=== PATIENT | female | born 1950 | race Caucasian/White ===

== ENCOUNTER 2019-01-17 13:56 | Inpatient (IN) | payer OTHER, MEDICARE ==
[~2019-01-17] VITALS: Ht 157.5 cm; Wt 117.9 kg
[~2019-01-17 13:56] MED LIST: ALBU0.0912 IH; IPRA14.7 INH
[2019-01-17 13:59] VITALS: BP 129/81
--- NOTE | 2019-01-17 13:59 | NUR ---
PATIENT BIBA TO BED 7 AT THIS TIME.
--- NOTE | 2019-01-17 14:10 | NUR ---
PT BIBA FROM HOME WITH C/O LEFT ANKLE PAIN AND SWELLING X 4DAYS WITH SOB. PT ON HOME O2 AT 2L NC NORMALLY. PT DENIES INJURY TO L ANKLE AND STATES THAT SHE IS IN NO PAIN AT THIS TIME. 2+ EDEMA NOTED ON TOP OF L FOOT, PULSES PRESENT BILATERALLY. PT DENIES N/V/D AT THIS TIME. PT STATES THAT SHE HAS A COUGH WITH PHLEGM, WHEEZES NOTED. PT IS ON 2L NC. PT POSITIONED FOR COMFORT, HOB ELEVATED. BED RAIL UP X 2 FOR PT SAFETY. ER MD AWARE OF PT STATUS. ALLERGY: PENICILLIN, CODEINE HX: COPD, ASTHMA RX: ALBUTEROL, ATIVAN
[2019-01-17] MEDS ORDERED: IPRATROPIUM 0.02% 0.5 MG/2.5 ML NEBU INH ONE (14:30)
[2019-01-17] MEDS ORDERED: predniSONE 20 MG TAB PO ONE (14:30)
[2019-01-17] MEDS ORDERED: ALBUTEROL 0.083% 2.5 MG/3 ML NEBU INH ONE (14:30)
--- NOTE | 2019-01-17 14:37 | NUR ---
RADIOLOGY AT BEDSIDE.
--- NOTE | 2019-01-17 14:39 | NUR ---
RESPIRATORY AT BEDSIDE.
--- NOTE | 2019-01-17 15:11 | NUR ---
LAB AT BEDSIDE.
--- NOTE | 2019-01-17 15:15 | NUR ---
ULTRASOUND AT BEDSIDE
[2019-01-17 15:43] LABS: PROTHROMBIN TIME 9.6 secs (10.8-13.4)
[2019-01-17 15:50] LABS: ALBUMIN 2.9 g/dL (3.4-5.0); ANION GAP 10.2 (8-16); CARBON DIOXIDE 34.3 mmol/L (21-32); CREATININE 0.8 mg/dL (0.6-1.3); POTASSIUM 4.5 mmol/L (3.5-5.1); TOTAL BILIRUBIN 0.3 mg/dL (0.0-1.0)
--- NOTE | 2019-01-17 16:30 | NUR ---
RESPIRATORY AT BEDSIDE.
[2019-01-17] MEDS ORDERED: ONDANSETRON 4 MG/2 ML VIAL IVP PRN (17:05)
[2019-01-17] MEDS ORDERED: ALBUTEROL SULFATE/IPRATROPIU 3 ML SOL IH PRN (17:05)
[2019-01-17] MEDS ORDERED: ACETAMINOPHEN 325 MG TAB PO PRN (17:05)
[2019-01-17 17:52] LABS: BASOPHILS # (AUTO) 0.1 K/uL (0.00-0.22); BASOPHILS % (AUTO) 0.7 % (0.0-2.0); EOSINOPHILS # (AUTO) 0.2 K/uL (0-0.4); EOSINOPHILS % (AUTO) 1.6 % (0.0-4.0); HEMATOCRIT 44.9 % (36-48); HEMOGLOBIN 14.2 g/dL (12.0-16.0); LYMPHOCYTES % (AUTO) 21.7 % (20.5-51.1); MEAN CORPUSCULAR HEMOGLOBIN 29 pg (27-31); MEAN CORPUSCULAR HGB CONC 32 g/dL (33-37); MEAN CORPUSCULAR VOLUME 90.4 fL (80-94); MONOCYTES # (AUTO) 0.9 K/uL (0.8-1.0); MONOCYTES % (AUTO) 6.2 % (1.7-9.3); NEUTROPHILS # (AUTO) 9.8 K/uL (1.8-7.7); NEUTROPHILS % (AUTO) 69.8 % (42.2-75.2); PLATELET COUNT (AUTO) 293 K/uL (140-450); RED BLOOD CELL COUNT(AUTO) 4.97 MIL/uL (4.20-5.40); RED CELL DISTRIBUTION WIDTH 13.7 % (11.6-13.7)
--- NOTE | 2019-01-17 18:20 | NUR ---
Patient will be admitted to care of DR MELARA. Admited to TELE. Will go to room 123A. Belongings list completed. Report to HAL GUNDERSON.
[2019-01-17 18:50] LABS: MAGNESIUM 2.1 mg/dL (1.8-2.4)
[2019-01-17 18:51] LABS: FREE T4 (FREE THYROXINE) 0.75 ng/dL (0.76-1.46); PHOSPHORUS 3.2 mg/dL (2.5-4.9); THYROID STIMULATING HORMONE 6.81 uIU/mL (0.34-3.74)
[2019-01-17] MEDS ORDERED: IBUPROFEN 800 MG TAB PO PRN (19:00)
[2019-01-17] MEDS ORDERED: KETOROLAC 30 MG/ML VIAL IVP PRN (19:00)
--- NOTE | 2019-01-17 19:35 | NUR ---
RECEIVED BEDSIDE REPORT FROM DAY SHIFT NURSE. PATIENT IS AWAKE, ALERT, AND COOPERATIVE. ADMITTING DIAGNOSIS COPD EXACERBATION. RESPIRATION EVEN UNLABORED ON 2L NC O2. NO DISTRESS NOTED. SKIN IS WARM AND DRY. NO IV LINE NOTED. HEART RATE REGULAR. S1 & S2 NOTED. WHEEZES AUSCULTATED ON EXPIRATION BILATERALLY. BOWEL SOUNDS PRESENT IN ALL 4 QUADRANTS. ABDOMEN SOFT AND NON-TENDER. LAST BM 01/16/19. VITALS WERE TAKEN. ORIENT PATIENT TO THE ROOM, STAFF, AND CALL LIGHT. PLAN OF CARE WAS DISCUSSED. ALL SAFETY MEASURES IN PLACE. BED IS AT LOW POSITION. CALL LIGHT WITHIN REACH AND VERBALIZES ITS USE. WILL CONTINUE TO MONITOR.
[2019-01-17] MEDS: NACL 0.9% 1,000 ML IV SCH (19:53)
[2019-01-17] MEDS ORDERED: cefTRIAXone 1,000 MG VIAL ONE (19:58)
[2019-01-17] MEDS ORDERED: AZITHROMYCIN 250 MG TAB PO SCH (20:00)
--- NOTE | 2019-01-17 20:00 | NUR ---
INITIAL ASSESSMENT DONE. INSERTED AN IV LINE TO THE RIGHT HAND 24 G. PATIENT TOLERATED IT WELL.
[2019-01-17] MEDS: ALBUTEROL SULFATE/IPRATROPIU 3 ML SOL IH SCH (20:11)
--- NOTE | 2019-01-17 20:45 | NUR ---
PATIENT IS GOING TO CT ANGIO CHEST. INSERTED A NEW IV LINE 20 G RIGHT FOREARM. PATIENT TOLERATED IT WELL. WILL CONTINUE TO MONITOR.
[2019-01-17] MEDS: DOCUSATE SODIUM 100 MG GELCAP PO SCH (20:51)
--- NOTE | 2019-01-17 21:10 | NUR ---
ALL SCHEDULED MEDS WERE GIVEN PER ORDER. NO ASE NOTED. WILL CONTINUE TO MONITOR.
--- NOTE | 2019-01-17 21:50 | NUR ---
PATIENT COMPLAINED OF LEG PAIN 6/. PRN PAIN MED ADMINISTERED PER ORDER. WILL CONTINUE TO MONITOR.
[2019-01-17] MEDS ORDERED: CYCLOBENZAPRINE 10 MG TAB PO PRN (22:30)
--- NOTE | 2019-01-17 22:30 | NUR ---
PATIENT COMPLAINED OF BAD BERTHA HORSES. INSTRUCT PATIENT TO SIT OR LIE DOWN WITH HER LEG OUT STRAIGHT AND PULL THE TOP OF HER FOOT TOWARD TO HER HEAD TO RELIEVE THE PAIN.
--- NOTE | 2019-01-17 22:50 | NUR ---
PATIENT STILL HAVING SOME MUSCLE PAIN. EARLY INTERVENTION DID NOT WORK. PRN MUSCLE SPASM ADMINISTERED PER ORDER. WILL CONTINUE TO MONITOR.
[2019-01-17 23:00] VITALS: BP 108/50
--- NOTE | 2019-01-18 00:05 | NUR ---
VITALS WERE TAKEN. PATIENT IN STABLE CONDITION. NO DISTRESS NOTED. WILL CONTINUE TO MONITOR.
--- NOTE | 2019-01-18 00:10 | NUR ---
VITALS WERE TAKEN. PATIENT IN STABLE CONDITION. NO DISTRESS NOTED. WILL CONTINUE TO MONITOR.
--- NOTE | 2019-01-18 00:57 | NUR ---
PATIENT SLEEPING. RESPIRATIONS EVEN AND UNLABORED. NO RESPIRATORY DISTRESS NOTED. WILL CONTINUE TO MONITOR.
--- NOTE | 2019-01-18 01:53 | NUR ---
CHECKED ON PATIENT. PATIENT SLEEPING RESPIRATION EVEN UNLABORED ON 2L NC O2. NO DISTRESS NOTED. WILL CONTINUE TO MONITOR.
[2019-01-18 04:00] VITALS: BP 128/56
--- NOTE | 2019-01-18 04:20 | NUR ---
VITALS WERE TAKEN. PATIENT IN STABLE CONDITION. NO DISTRESS NOTED. WILL CONTINUE TO MONITOR.
--- NOTE | 2019-01-18 06:00 | NUR ---
HELPED PATIENT USE BEDSIDE COMMODE. PATIENT TOLERATE IT WELL. WILL CONTINUE TO MONITOR.
[2019-01-18 06:39] LABS: ANION GAP 6.6 (8-16); CARBON DIOXIDE 37.5 mmol/L (21-32); POTASSIUM 4.1 mmol/L (3.5-5.1)
[2019-01-18 06:43] LABS: CHOL/HDL RATIO 5.7 (1-4.5); PHOSPHORUS 4.4 mg/dL (2.5-4.9)
[2019-01-18 06:52] LABS: BASOPHILS % (AUTO) 0.3 % (0.0-2.0); EOSINOPHILS # (AUTO) 0.3 K/uL (0-0.4); EOSINOPHILS % (AUTO) 2.2 % (0.0-4.0); HEMATOCRIT 40.3 % (36-48); HEMOGLOBIN 12.8 g/dL (12.0-16.0); LYMPHOCYTES # (AUTO) 3.5 K/uL (2.5-16.5); LYMPHOCYTES % (AUTO) 28.4 % (20.5-51.1); MEAN CORPUSCULAR HEMOGLOBIN 29 pg (27-31); MEAN CORPUSCULAR HGB CONC 32 g/dL (33-37); MEAN CORPUSCULAR VOLUME 91.1 fL (80-94); MONOCYTES # (AUTO) 0.8 K/uL (0.8-1.0); MONOCYTES % (AUTO) 6.4 % (1.7-9.3); NEUTROPHILS # (AUTO) 7.6 K/uL (1.8-7.7); NEUTROPHILS % (AUTO) 62.7 % (42.2-75.2); PLATELET COUNT (AUTO) 292 K/uL (140-450); RED BLOOD CELL COUNT(AUTO) 4.43 MIL/uL (4.20-5.40); RED CELL DISTRIBUTION WIDTH 13.9 % (11.6-13.7); WHITE BLOOD COUNT (AUTO) 12.2 K/uL (4.8-10.8)
[2019-01-18] MEDS: ALBUTEROL SULFATE/IPRATROPIU 3 ML SOL IH SCH ×3 (06:59→18:21)
[2019-01-18] MEDS ORDERED: CYCLOBENZAPRINE 10 MG TAB PO PRN (07:05)
--- NOTE | 2019-01-18 07:10 | NUR ---
PATIENT STATES THAT SHE USES SUPPLEMENTAL OXYGEN AT HOME AT 2.5 LPM VIA NC NADIYA/RN NOTIFIED
--- NOTE | 2019-01-18 07:12 | NUR ---
ENDORSED PATIENT TO DAY SHIFT NURSE. PATIENT IN STABLE CONDITION
--- NOTE | 2019-01-18 07:15 | NUR ---
Received report from pm nurse Massey. Pt resting in bed, receiving breathing tx, RT at bedside. No signs of distress. Per RT, will instruct pt on proper expectoration of sputum for lab collection. Call light within reach.
[2019-01-18 08:00] VITALS: BP 114/42
--- NOTE | 2019-01-18 08:05 | NUR ---
RECEIVED BEDSIDE REPORT FROM NADIYA. PATIENT IS AWAKE, ALERT AND ORIENTEDX4. NO SIGNS OF DISTRESS ON 2.5L NC. SKIN IS INTACT, IV ON R FA 20G NS AT 10. CLEAN,DRY AND INTACT. AMBULATORY W ASSIST. FALL RISK PROTOCOL IN PLACE. BEDSIDE COMMODE AT BEDSIDE. ABLE TO MAKE NEEDS KNOWN. BED IN LOW POSITION. CALL LIGHT WITHIN REACH.
--- NOTE | 2019-01-18 08:18 | NUR ---
PATIENT HAS BEEN SCREENED AND CATEGORIZED HIGH NUTRITION RISK. PATIENT WILL BE SEEN WITHIN 1-2 DAYS OF ADMISSION. 01/18/19-01/19/[address]
[2019-01-18] MEDS: DOCUSATE SODIUM 100 MG GELCAP PO SCH ×3 (09:00→20:04)
[2019-01-18] MEDS: AZITHROMYCIN 250 MG TAB PO SCH (09:07)
[2019-01-18] MEDS: LACTOBACILLUS RHAMNOSUS GG 1 EACH CAP PO SCH (09:07)
--- NOTE | 2019-01-18 09:16 | NUR ---
ADMINISTERED MEDS. EDUCATED ON SIDE EFFECTS. PATIENT REFUSED COLACE SHE SAID SHE DOESNT NEED IT AT THIS TIME WILL CONTINUE TO MONITOR THE PATIENT.
--- NOTE | 2019-01-18 10:26 | NUR ---
PATIENT IS SLEEPING. NO SIGNS OF DISTRESS. WILL CONTINUE TO MONITOR
--- NOTE | 2019-01-18 11:38 | NUR ---
DC PLANNINYRS OLD FEMALE PT ADMITTED FROM HOME WITH A DX OF COPD EXACERBATION . PT HAS A HX. OF COPD AND ASTHMA O2 DEPENDENT USES 2-3 L /NC AND INHALER AT HOME. INDEPENDENT WITH ADLS . PERFORMED RT PROTOCOL, Janie XRAY CARDIOMEGALY ,POSSIBLE PNEUMONIA ROCEPHIN 1G IV AND ZITHROMAX [address] ANGIO CHEST ORDERED WILL F/U . DC PLAN TO GO BACK HOME WITH HOME O2. CM TO FOLLOW. Addendum: 01/20/19 at 1503 by Kristin Miller CM DC PLANNING PER MD ORDER PT HAS DC ORDER TO GO TO SNF FOR PHYSICAL THERAPY AND IV ABX . CALLED [facility] SPOKE WITH ANTHONY [phone] PROVIDED AUTH # . REUBEN PATEL PT CAN GO TO ROOM 3A # TO GIVE REPORT [phone] AND ARRANGED TRANSPORT WITH [employer] TRANSPORT FINAL ASSEMBLY INSPECTOR TIME 3:30 NOTIFIED DAVID CHARGE NURSE Addendum: 01/20/19 at 1514 by Kristin Miller CM DC PLANNING PER OLIVE HINOJOSA HELD THE DISCHARGE AND CALLED REUBEN SANCHEZ NOTIFIED TO HOLD THE BED PER JELANI WILL HOLD THE BED AND CALLED [facility] SPOKE WITH BHAVESH LOUIE THE TRANSPORT AND PLACE IT WILL CALL FOR TOMORROW Addendum: 01/23/19 at 1332 by Kristin Miller CM DC PLANNING PT REFUSED TO GO TO SNF ,PREFERRED TO GO HOME WITH HOME HEALTH . FAXED ALL THE PAPER WORK TO [facility] AND PROVIDE THE NEW ADDRESS [address] [place] [address] DR KATHIE ESTRADA [id number] AND THE CONTACT NUMBER [phone]
[2019-01-18 12:00] VITALS: BP 105/41
--- NOTE | 2019-01-18 12:00 | NUR ---
PATIENT IN NO DISTRESS. WILL CONTINUE TO MONITOR THE PATIENT.
--- NOTE | 2019-01-18 12:17 | NUR ---
Award Machine Operator Note: Basic Screen: Yes High Risk DC Screen Yes Name: TISH Emanuel Relationship: DAUGHTER Pre-Admission Living Arrangements: Lives with Other Prior ADL Independent Current Home Health Name/Tel: N/A Current DME/02 Name/Tel: [facility] Current Hospice Name/Tel: N/A Current Dialysis Name/Tel: N/A Healthcare Decision Maker: Patient Advance Directive No - REFUSED Physician Orders for Life Sustaining Treatment Form No Patient/Family Have Educational Needs No Information Taught: Advance Directive Person Taught: Patient Teaching Tools: Verbal Factors Affecting Learning: Hearing Deficit Participation Level: Refused Discipline: Case Mgt/Social Svcs Tentative Discharge Plan/Destination: No Needs Identified Tentative Discharge Plan Summary: Patient is a 68 year old female admitted for COPD exacerbation. Patient was admitted from home. Patient has past medical hx of asthma and COPD. RACHELL verified demographics with patient. Patient stated she is not sure if she can return home. SW provided her with homeless resources, room and board resources, and low cost clinics resources. Patient stated she would like to go to a [place] [facility] [place]. RACHELL informed patient that if physician finds it medically necessary, a SNF can be arranged. Patient stated she would speak to physician about SNF. Patient stated she makes $930 a month from [employer]. Patient stated that she has a hx of depression and anxiety. Patient denies SI/HI. SW offered mental health resources, but patient refused. Patient stated she has no substance abuse history but smokes a pack of cigarettes a week. SW provided education on advanced directive but patient refused. SW will follow up as needed. Signature: Syd Burt Date: Jan 18, 2019 Time: 12:16
--- NOTE | 2019-01-18 13:20 | NUR ---
01/18/19 RD INITIAL ASSESSMENT COMPLETED PLEASE REFER TO NUTRITION ASSESSMENT UNDER CARE ACTIVITY FOR ESTIMATED NUTRITIONAL NEEDS. 1. CONTINUE REGULAR DIET TOLERATED 2. NUTRITION EDUCATION ON GENERAL HEALTHY EATING WAS GIVEN TO PATIENT 3. RD TO FOLLOW-UP 5-7 DAYS, LOW RISK PETE WADDELL, RD
[2019-01-18] MEDS ORDERED: DOCUSATE SODIUM 100 MG GELCAP PO SCH (13:30)
[2019-01-18] MEDS: methylPREDNISolone SS 40 MG/ML VIAL IVP SCH ×3 (13:37→23:47)
[2019-01-18 13:41] LABS: APPEARANCE,URINE CLEAR (CLEAR); COLOR,URINE ORANGE (YELLOW)
--- NOTE | 2019-01-18 13:42 | NUR ---
EDUCATION PROVIDED TO PATIENT ON SPUTUM SAMPLE COLLECTION SPECIMEN PLACED ON PATIENT TABLE
[2019-01-18 13:45] LABS: UGLUCOSE NEGATIVE (NEGATIVE)
[2019-01-18 13:46] LABS: BILIRUBIN,URINE NEGATIVE (NEGATIVE); BLOOD, URINE NEGATIVE (NEGATIVE); LEUKOCYTE ESTERASE ,URINE NEGATIVE (NEGATIVE); NITRITE, URINE NEGATIVE (NEGATIVE)
--- NOTE | 2019-01-18 13:58 | NUR ---
PATIENT IN NO DISTRESS. WILL CONTINUE TO MONITOR THE PATIENT
--- NOTE | 2019-01-18 13:58 | NUR ---
JOELLE IS PATIENT NIECE. PATIENT IS FORGETFUL AND JOELLE STATES SHE KNOWS THE PATIENTS INFORMATION. PATIENT SAYS ITS OK TO UPDATE AND TELL JOELLE HER INFORMATION
--- NOTE | 2019-01-18 14:59 | NUR ---
GAVE BEDSIDE REPORT TO NADIYA. PATIENT IN STABLE CONDITION
--- NOTE | 2019-01-18 15:00 | NUR ---
Received report from Mariia GUNDERSON. Pt in high fowlers in bed, watching TV, no signs of distress on O2 @ 2.5L/min via n/c, no c/o pain/discomfort. Call light within reach.
[2019-01-18 16:00] VITALS: BP 120/54
[2019-01-18] MEDS: NACL 0.9% 1,000 ML IV SCH (17:07)
[2019-01-18] MEDS: BUDESONIDE 0.5 MG/2 ML NEBU INH SCH (18:30)
--- NOTE | 2019-01-18 18:30 | NUR ---
TREATMENT STARTED @1822, AFTER 3 MINUTES PATIENT STATED THAT WAS ALL SHE COULD TOLERATE AND TOOK MASK OFF. ASKED PATIENT WHAT SETTINGS SHE USES CPAP AT HOME. PATIENT STATED THAT SHE DOES NOT USE CPAP AT HOME. ADVISED PATIENT OF CPAP ORDER AND EXPLAINED PURPOSE AND WHAT IT IS. PATIENT DECLINED.
--- NOTE | 2019-01-18 19:28 | NUR ---
Report given to pm nurse Graham. Pt resting in bed, no signs of distress.
--- NOTE | 2019-01-18 19:29 | NUR ---
RECEIVED BEDSIDE REPORT FROM DAY SHIFT NURSE. PATIENT IS AWAKE, ALERT, AND COOPERATIVE. RESPIRATION EVEN UNLABORED ON 2L NC O2. NO DISTRESS NOTED. SKIN IS WARM AND DRY. IV SITE ON RFA 20G, PATENT, INTACT AND ASYMPTOMATIC BOWEL SOUNDS PRESENT IN ALL 4 QUADRANTS. ABDOMEN SOFT AND NON-TENDER. SKIN INTACT. PLAN OF CARE WAS DISCUSSED. ALL SAFETY MEASURES IN PLACE. BED IS AT LOW POSITION. CALL LIGHT WITHIN REACH.
[2019-01-18 20:00] VITALS: BP 112/54
[2019-01-18] MEDS: ATORVASTATIN 20 MG TAB PO SCH (20:04)
--- NOTE | 2019-01-18 20:11 | NUR ---
GIVEN HEPARIN, COLACE, LIPITOR, AND ROCEPHIN MD ORDERED. PT TOLERATED WELL.
--- NOTE | 2019-01-18 22:10 | NUR ---
ASSISTED PT TO USE BEDSIDE COMMODE. NO DISTRESS NOTED.
--- NOTE | 2019-01-18 23:47 | NUR ---
GIVEN SOLU MEDROL MD ORDERED. PT TOLERATED WELL. VS CHECKED, WITHIN PT'S BASELINE.
[2019-01-19] VITALS: BP 113/44
--- NOTE | 2019-01-19 00:55 | NUR ---
PT C/O HARD TO BREATH. CALLED RT TO HAVE BREATHING TX.
--- NOTE | 2019-01-19 03:55 | NUR ---
VS CHECKED, WITHIN PT'S BASELINE. WILL CONTINUE TO MONITOR.
[2019-01-19 04:00] VITALS: BP 105/45
[2019-01-19 05:37] LABS: BASOPHILS # (AUTO) 0.1 K/uL (0.00-0.22); BASOPHILS % (AUTO) 0.5 % (0.0-2.0); HEMATOCRIT 40.7 % (36-48); LYMPHOCYTES # (AUTO) 0.9 K/uL (2.5-16.5); LYMPHOCYTES % (AUTO) 7.7 % (20.5-51.1); MEAN CORPUSCULAR HEMOGLOBIN 29 pg (27-31); MEAN CORPUSCULAR HGB CONC 32 g/dL (33-37); MEAN CORPUSCULAR VOLUME 90.6 fL (80-94); MONOCYTES # (AUTO) 0.1 K/uL (0.8-1.0); MONOCYTES % (AUTO) 0.8 % (1.7-9.3); PLATELET COUNT (AUTO) 279 K/uL (140-450); RED BLOOD CELL COUNT(AUTO) 4.49 MIL/uL (4.20-5.40); RED CELL DISTRIBUTION WIDTH 13.3 % (11.6-13.7); WHITE BLOOD COUNT (AUTO) 12.1 K/uL (4.8-10.8)
[2019-01-19] MEDS: methylPREDNISolone SS 40 MG/ML VIAL IVP SCH ×4 (06:26→23:59)
--- NOTE | 2019-01-19 06:26 | NUR ---
GIVEN SOLU MEDROL MD ORDERED. PT TOLERATED WELL.
[2019-01-19 07:14] LABS: ANION GAP 8.1 (8-16); CARBON DIOXIDE 32.9 mmol/L (21-32)
--- NOTE | 2019-01-19 07:15 | NUR ---
RECEIVED REPORT FROM METAL DRAWER NURSE ARI FOR CONTINUITY OF CARE. PT IN STABLE CONDITION. RESPIRATIONS EVEN AND UNLABORED. IV INTACT AND PATENT. SAFETY MEASURES IN PLACE. BED IN LOW POSITION. CALL LIGHT AT BEDSIDE. BED ALARM ON. WILL CONTINUE TO MONITOR.
[2019-01-19] MEDS: ALBUTEROL SULFATE/IPRATROPIU 3 ML SOL IH SCH ×3 (07:31→19:11)
[2019-01-19] MEDS: BUDESONIDE 0.5 MG/2 ML NEBU INH SCH ×2 (07:31→19:11)
[2019-01-19 08:00] VITALS: BP 104/44
[2019-01-19] MEDS: AZITHROMYCIN 250 MG TAB PO SCH (08:58)
[2019-01-19] MEDS: DOCUSATE SODIUM 100 MG GELCAP PO SCH ×2 (08:59→20:37)
[2019-01-19] MEDS: LACTOBACILLUS RHAMNOSUS GG 1 EACH CAP PO SCH (08:59)
--- NOTE | 2019-01-19 09:09 | NUR ---
GAVE PAIN MEDICATION AT THIS TIME. PT TOLERATED WELL. BED IN LOW POSITION. CALL LIGHT AT BEDSIDE. BED ALARM ON. WILL CONTINUE TO MONITOR.
[2019-01-19] MEDS ORDERED: ALBUTEROL HFA MDI 90 MCG/ACTUATION 8 GM INH PRN (10:10)
--- NOTE | 2019-01-19 11:30 | NUR ---
GAVE PUDDING AND JELL-O PER PT REQUEST. PT TOLERATED WELL.
[2019-01-19 12:00] VITALS: BP 109/34
[2019-01-19] MEDS ORDERED: ALBUTEROL HFA MDI 90 MCG/ACTUATION 8 GM INH SCH (13:00)
--- NOTE | 2019-01-19 13:11 | NUR ---
SPUTUM COLLECTED AND SENT TO LAB
--- NOTE | 2019-01-19 13:33 | NUR ---
CALLED [facility] PT REQUEST TOAST, JELLY, AND BUTTER.
--- NOTE | 2019-01-19 14:12 | NUR ---
PT GIVEN NOAH AND VILMA-Dixon. WILL CONTINUE TO MONITOR.
--- NOTE | 2019-01-19 14:44 | NUR ---
PT C/O STOMACH FEELING TIGHT. EXPLAINED TO PT TO REST STOMACH AT THIS TIME DUE TO INCREASED EATING HABIT.
--- NOTE | 2019-01-19 15:39 | NUR ---
PT CONTINUES TO EAT SNACKS AT THIS TIME. WILL CONTINUE TO MONITOR.
[2019-01-19 16:13] VITALS: BP 101/45
--- NOTE | 2019-01-19 16:47 | NUR ---
pt requested pain medication. pt broke medication in half with her teeth and only took half a tablet and refused the other half.
[2019-01-19] MEDS: NACL 0.9% 1,000 ML IV SCH (17:04)
--- NOTE | 2019-01-19 17:09 | NUR ---
SPUTUM COLLECTED AND SENT TO LAB FOR ANOTHER REEVALUATION. THE FIRST SPUTUM SENT WAS NOT VALID
--- NOTE | 2019-01-19 17:45 | NUR ---
PT EATING DINNER AT THIS TIME. BED IN LOW POSITION. BED ALARM ON. CALL LIGHT AT BEDSIDE. WILL CONTINUE TO MONITOR.
--- NOTE | 2019-01-19 19:20 | NUR ---
GAVE REPORT TO SKILLS INSTRUCTOR NURSE AMBIKA FOR CONTINUITY OF CARE. PT IN STABLE CONDITION.
--- NOTE | 2019-01-19 19:20 | NUR ---
RECEIVED PATIENT REPORT AT BEDSIDE. PATIENT AWAKE, ALERT AND ORIENTED. PATIENT IS RECEIVING 2.5L O2 VIA NC. NO SOB AT THIS TIME. NO C/O PAIN OR DISCOMFORT AT THIS TIME. BED LOWERED WITH CALL LIGHT WITHIN REACH. PT VERBALIZED UNDERSTANDING ON USING THE CALL LIGHT WHEN IN NEED OF ASSISTANCE
[2019-01-19 20:00] VITALS: BP 99/54
--- NOTE | 2019-01-19 20:37 | NUR ---
ADMINISTERED SCHEDULED MEDICATIONS. PATIENT TOLERATED WELL
[2019-01-19] MEDS: ATORVASTATIN 20 MG TAB PO SCH (20:38)
[2019-01-20] VITALS: BP 110/53
--- NOTE | 2019-01-20 00:30 | NUR ---
PT ASLEEP IN BED AT THIS TIME. NO S/S OF DISTRESS
[2019-01-20] MEDS: ALBUTEROL SULFATE/IPRATROPIU 3 ML SOL IH PRN (02:39)
--- NOTE | 2019-01-20 02:49 | NUR ---
PROVIDED SPUTUM CUP AND EXPLAINED TO PATIENT THAT SHE NEEDS TO GIVE A SPUTUM SAMPLE. PT VERBALIZED UNDERSTANDING BUT SHE SAID HER COUGH IS DRY. SPUTUM SAMPLE CUP AT BEDSIDE WITHIN REACH OF PATIENT. WILL CONTINUE TO MONITOR.
[2019-01-20 05:16] VITALS: BP 117/50
[2019-01-20] MEDS: methylPREDNISolone SS 40 MG/ML VIAL IVP SCH ×3 (06:16→18:58)
[2019-01-20 06:37] LABS: BASOPHILS % (AUTO) 0.2 % (0.0-2.0); HEMATOCRIT 40.5 % (36-48); LYMPHOCYTES # (AUTO) 1.2 K/uL (2.5-16.5); LYMPHOCYTES % (AUTO) 7.1 % (20.5-51.1); MEAN CORPUSCULAR HEMOGLOBIN 29 pg (27-31); MEAN CORPUSCULAR HGB CONC 32 g/dL (33-37); MEAN CORPUSCULAR VOLUME 89.4 fL (80-94); MONOCYTES # (AUTO) 0.3 K/uL (0.8-1.0); NEUTROPHILS # (AUTO) 15.6 K/uL (1.8-7.7); NEUTROPHILS % (AUTO) 90.7 % (42.2-75.2); PLATELET COUNT (AUTO) 288 K/uL (140-450); RED BLOOD CELL COUNT(AUTO) 4.52 MIL/uL (4.20-5.40); WHITE BLOOD COUNT (AUTO) 17.3 K/uL (4.8-10.8)
[2019-01-20] MEDS: BUDESONIDE 0.5 MG/2 ML NEBU INH SCH ×2 (07:08→19:31)
[2019-01-20] MEDS: ALBUTEROL SULFATE/IPRATROPIU 3 ML SOL IH SCH ×3 (07:08→19:31)
[2019-01-20 07:11] LABS: ANION GAP 10.6 (8-16); CARBON DIOXIDE 29.9 mmol/L (21-32); CREATININE 0.9 mg/dL (0.6-1.3); POTASSIUM 4.5 mmol/L (3.5-5.1)
--- NOTE | 2019-01-20 07:41 | NUR ---
RECEIVED REPORT FROM MANUFACTURING SUPERVISOR RN. PT IN STABLE CONDITION. WILL CONTINUE TO ROUND ON PT.
[2019-01-20 08:00] VITALS: BP 106/57
[2019-01-20] MEDS: DOCUSATE SODIUM 100 MG GELCAP PO SCH ×2 (09:00→20:58)
[2019-01-20] MEDS ORDERED: FUROSEMIDE 40 MG/4 ML VIAL IVP SCH (09:30)
--- NOTE | 2019-01-20 09:41 | NUR ---
MORNIGN MEDS GIVEN. PT TOLERATED WELL. ALL NEEDS MET. WILL CONTINUE TO ROUND FREQUENTLY ON PT.
[2019-01-20] MEDS: LACTOBACILLUS RHAMNOSUS GG 1 EACH CAP PO SCH (10:06)
[2019-01-20] MEDS: AZITHROMYCIN 250 MG TAB PO SCH (10:06)
--- NOTE | 2019-01-20 11:00 | NUR ---
P.T. NOTES PATIENT REFUSED TO PARTICIPATE WITH P.T. SERVICES IN SPITE OF SEVERAL ENCOURAGEMENTS WERE GIVEN. SHE STATES SHE IS TOO TIRED AND SLEEPY AND DOES NOT WANT TO GET OUT OF BED. PLAN: WE'LL FOLLOW UP AGAIN AND CONTINUE PER PLAN OF CARE IF SHE REMAINS IN THIS HOSPITAL.
--- NOTE | 2019-01-20 11:20 | NUR ---
PT RESTING. ALL NEEDS MET
--- NOTE | 2019-01-20 13:54 | NUR ---
PT ASLEEP WITH FAMILY AT BEDSIDE. ALL NEEDS MET. WILL CONTINUE TO ROUND ON PT.
--- NOTE | 2019-01-20 15:21 | NUR ---
PT RESTING. ALL NEEDS MET. WILL CONTINUE TO ROUND ON PT.
[2019-01-20] MEDS: NACL 0.9% 1,000 ML IV SCH (17:04)
--- NOTE | 2019-01-20 17:45 | NUR ---
PT RESTING. ALL NEEDS ME.T
[2019-01-20 18:00] VITALS: BP 112/62
[2019-01-20] MEDS: FUROSEMIDE 40 MG/4 ML VIAL IVP SCH (18:58)
--- NOTE | 2019-01-20 19:33 | NUR ---
ENDORSED PT TO NEWS COMMENTATOR FOR CONTINUITY OF CARE. PT IN STABLE CONDITION.
--- NOTE | 2019-01-20 19:34 | NUR ---
Received endorsement from AM shift RN; patient A/Ox2, able to make needs known, Burkinan speaking, on bedrest. Patient watching TV; introduced self, updated board. No SOB or distress noted, on O2 2LPM via nasal cannula. IV site noted on right hand, 24 gauge, saline locked. Skin intact. Bed in the lowest position, call light within reach. Initial assessment done. Will continue to monitor.
--- NOTE | 2019-01-20 20:40 | NUR ---
Vitals taken, no distress noted.
[2019-01-20] MEDS: ATORVASTATIN 20 MG TAB PO SCH (20:58)
--- NOTE | 2019-01-20 21:45 | NUR ---
Due meds given, tolerated well.
--- NOTE | 2019-01-20 23:50 | NUR ---
Vitals taken, no SOB or distress noted. Patient resting comfortably, eyes closed, visible chest rise and fall noted.
[2019-01-21] VITALS: BP 112/40
[2019-01-21] MEDS: methylPREDNISolone SS 40 MG/ML VIAL IVP SCH ×5 (00:32→23:27)
--- NOTE | 2019-01-21 01:40 | NUR ---
Rounds done; patient asleep, eyes closed, visible chest rise and fall noted.
--- NOTE | 2019-01-21 04:16 | NUR ---
Checks made; patient resting comfortably, visible chest rise and fall noted.
--- NOTE | 2019-01-21 05:20 | NUR ---
Patient refused Solumedrol dose at this time.
--- NOTE | 2019-01-21 06:15 | NUR ---
Vitals stable, due meds given. Will endorse to AM shift RN for continuity of care.
[2019-01-21] MEDS: ALBUTEROL SULFATE/IPRATROPIU 3 ML SOL IH SCH ×3 (06:55→19:19)
[2019-01-21] MEDS: BUDESONIDE 0.5 MG/2 ML NEBU INH SCH ×2 (06:55→19:19)
--- NOTE | 2019-01-21 07:10 | NUR ---
RECEIVED REPORT FROM HUMAN RESOURCES ASSISTANT NURSE PINA FOR CONTINUITY OF CARE. PT IN STABLE CONDITION. RESPIRATIONS EVEN AND UNLABORED, 02 2.5L VIA NC . IV INTACT AND PATENT. SAFETY MEASURES IN PLACE. BED IN LOW POSITION. BED ALARM ON. CALL LIGHT AT BEDSIDE. WILL CONTINUE TO MONITOR.
[2019-01-21 08:00] VITALS: BP 121/62
[2019-01-21] MEDS: FUROSEMIDE 40 MG/4 ML VIAL IVP SCH ×2 (09:00→17:59)
[2019-01-21 09:39] LABS: BASOPHILS # (AUTO) 0.1 K/uL (0.00-0.22); BASOPHILS % (AUTO) 0.4 % (0.0-2.0); HEMATOCRIT 43.8 % (36-48); HEMOGLOBIN 13.9 g/dL (12.0-16.0); LYMPHOCYTES # (AUTO) 1.5 K/uL (2.5-16.5); MEAN CORPUSCULAR HEMOGLOBIN 29 pg (27-31); MEAN CORPUSCULAR HGB CONC 32 g/dL (33-37); MEAN CORPUSCULAR VOLUME 90.5 fL (80-94); MONOCYTES # (AUTO) 0.6 K/uL (0.8-1.0); MONOCYTES % (AUTO) 3.6 % (1.7-9.3); NEUTROPHILS # (AUTO) 14.4 K/uL (1.8-7.7); PLATELET COUNT (AUTO) 307 K/uL (140-450); RED BLOOD CELL COUNT(AUTO) 4.84 MIL/uL (4.20-5.40); RED CELL DISTRIBUTION WIDTH 13.9 % (11.6-13.7); WHITE BLOOD COUNT (AUTO) 16.6 K/uL (4.8-10.8)
--- NOTE | 2019-01-21 09:40 | NUR ---
GAVE ORDERED DUE MEDICATIONS AT THIS TIME. PT TOLERATED WELL. BED IN LOW POSITION. BED ALARM ON. CALL LIGHT AT BEDSIDE. WILL CONTINUE TO MONITOR.
[2019-01-21] MEDS: DOCUSATE SODIUM 100 MG GELCAP PO SCH ×2 (09:48→20:18)
[2019-01-21] MEDS: AZITHROMYCIN 250 MG TAB PO SCH (09:49)
[2019-01-21 10:25] LABS: ANION GAP 9.9 (8-16); CARBON DIOXIDE 33.9 mmol/L (21-32); CREATININE 1.1 mg/dL (0.6-1.3); POTASSIUM 4.8 mmol/L (3.5-5.1)
--- NOTE | 2019-01-21 12:04 | NUR ---
SPOKE TO JAYANT FROM [facility] AT [phone]. SHE SAID IF PATIENT IS CLEARED PATIENT STILL HAS A BED AVAILABLE SHE WILL GO TO ROOM 3A
--- NOTE | 2019-01-21 12:05 | NUR ---
NEW IV SITE 22G RIGHT SHOULDER PLACED AT THIS TIME. PT TOLERATED WELL. WILL CONTINUE TO MONITOR. CALL LIGHT AT BEDSIDE. BED IN LOW POSITION.
[2019-01-21] MEDS: LACTOBACILLUS RHAMNOSUS GG 1 EACH CAP PO SCH (12:20)
--- NOTE | 2019-01-21 14:20 | NUR ---
[facility] CALLED PER PT REQUEST FOR TOAST, JELLY, AND BUTTER.
[2019-01-21 16:00] VITALS: BP 116/59
--- NOTE | 2019-01-21 16:07 | NUR ---
ASSISTED PT WITH CHANGING GOWN PER PT REQUEST. PT TOLERATED WELL. WILL CONTINUE TO MONITOR. CALL LIGHT AT BEDSIDE. BED IN LOW POSITION.
[2019-01-21] MEDS: NACL 0.9% 1,000 ML IV SCH (17:04)
--- NOTE | 2019-01-21 19:10 | NUR ---
GAVE REPORT TO PATIENT ASSISTANT NURSE SANDRO FOR CONTINUITY OF CARE. PT IN STABLE CONDITION.
--- NOTE | 2019-01-21 19:10 | NUR ---
RECIEVED PT AAOX4 , WITH WHEEZES , C/O SOB ON EXERTION , EASY FATIGIBILITY , WITH IV SITE INTACT AND PATENT . 02 SAT 95% ON SAFETY / FALL PRECAUTION PROTOCOL , REMINDS THE USES OF CALL LIGHT WHEN NEEDED HELP / AND ASSISTANCE . PLAN OF CARE DISCUSSED AND VERBALIZE UNDERSTANDING .WILL CONT. TO MONITOR.
--- NOTE | 2019-01-21 19:40 | NUR ---
PT IS ON 2L NC. SATS 92%. HR 68. NO RESP DISTRESS AT THIS TIME. PT REFUSED CPAP.
[2019-01-21] MEDS: ATORVASTATIN 20 MG TAB PO SCH (20:19)
--- NOTE | 2019-01-21 22:00 | NUR ---
MADE ROUNDS , NO SIGNS OF ACUTE DISTRESS NOTED AT THIS TIME - CALL LIGHT WITHIN REACH.
[2019-01-22] VITALS: BP 110/60
--- NOTE | 2019-01-22 | NUR ---
MADE ROUNDS , NO SIGNS OF ACUTE DISTRESS NOTED AT THIS TIME. CALL LIGHT WITHIN REACH . WILL CONT. TO MONITOR. CALL LIGHT WITHIN REACH.
--- NOTE | 2019-01-22 01:00 | NUR ---
ASSISTED PATIENT TO BEDSIDE COMMODE. NO DISTRESS NOTED. NO SOB. BED ON LOW POSITION. CALL LIGHT WITHIN REACH. WILL CONTINUE TO MONITOR. Addendum: 01/23/19 at 0155 by Danelle Wiseman RN WRONG DATE ENTRY
--- NOTE | 2019-01-22 02:10 | NUR ---
MADE ROUNDS , SLEEPING . CHEST RISE AND FALL EQUALLY - CALL LIGHT WITHIN REACH.
--- NOTE | 2019-01-22 03:03 | NUR ---
MADE ROUNDS , PT. AWAKE . REQUESTING APPLE JIUCE . REQUESTING CT SCAN OF CHEST TO BE DONE AFTER HER BREAKFAST - INFORMED RADIOLOGIST.
[2019-01-22] MEDS: methylPREDNISolone SS 40 MG/ML VIAL IVP SCH ×3 (05:22→18:53)
--- NOTE | 2019-01-22 06:00 | NUR ---
MADE ROUND. REMINDS PT . FOR CT CHEST THIS 6AM , BUT THE PT. REQUESTING BREATHING TXT FIRST BEFORE CT SCAN .REFER TO RT - INFORM RADIOLOGIST ON DUTY ABOUT THE PT'S REQUEST. TO BE CAKE WRINGER BY RADIOLOGIST ONCE BREATHING TXT DONE . MAINTAIN NPO. WILL CONT. TO MONITOR.
[2019-01-22] MEDS: ALBUTEROL SULFATE/IPRATROPIU 3 ML SOL IH SCH ×3 (06:35→19:11)
[2019-01-22] MEDS: BUDESONIDE 0.5 MG/2 ML NEBU INH SCH ×2 (06:35→19:11)
[2019-01-22 07:06] LABS: HEMOGLOBIN 13.6 g/dL (12.0-16.0); MEAN CORPUSCULAR HEMOGLOBIN 28 pg (27-31); MEAN CORPUSCULAR HGB CONC 32 g/dL (33-37); MEAN CORPUSCULAR VOLUME 89.7 fL (80-94); PLATELET COUNT (AUTO) 297 K/uL (140-450); RED CELL DISTRIBUTION WIDTH 13.9 % (11.6-13.7); WHITE BLOOD COUNT (AUTO) 16.1 K/uL (4.8-10.8)
--- NOTE | 2019-01-22 07:15 | NUR ---
REPORT RECEIVED BY DRILL GRINDER NURSE FOR CONTINUITY OF CARE. RESPIRATIONS EVEN AND UNLABORED, IV INTACT AND PATENT, SAFETY MEASURES IN PLACE, BED IN LOW POSITION, BED ALARM ON, CALL LIGHT AT BEDSIDE, WILL CONTINUE TO MONITOR. EDUCATED ON THE IMPORTANCE OF COMING TO STAFF IF HAVING TROUBLE BREATHING.
[2019-01-22 07:25] LABS: CARBON DIOXIDE 30.4 mmol/L (21-32); POTASSIUM 4.4 mmol/L (3.5-5.1)
[2019-01-22 07:29] LABS: LYMPHOCYTES % (MANUAL) 10 % (20-46); MONOCYTES % (MANUAL) 3 % (5-12)
[2019-01-22 07:30] LABS: MAGNESIUM 2.2 mg/dL (1.8-2.4); PHOSPHORUS 3.8 mg/dL (2.5-4.9)
--- NOTE | 2019-01-22 07:50 | NUR ---
PT OFF UNIT FOR CT CHEST WITHOUT CONTRAST. PT IN STABLE CONDITION.
[2019-01-22 08:00] VITALS: BP 93/52
--- NOTE | 2019-01-22 08:00 | NUR ---
PT BACK ON UNIT AT THIS TIME. BED IN LOW POSITION. BED ALARM ON. CALL LIGHT AT BEDSIDE. WILL CONTINUE TO MONITOR.
--- NOTE | 2019-01-22 09:45 | NUR ---
GAVE ORDERED DUE MEDICATIONS AT THIS TIME. PT TOLERATED WELL. BED IN LOW POSITION. BED ALARM ON. CALL LIGHT AT BEDSIDE. WILL CONTINUE TO MONITOR.
[2019-01-22] MEDS: LACTOBACILLUS RHAMNOSUS GG 1 EACH CAP PO SCH (09:58)
[2019-01-22] MEDS: DOCUSATE SODIUM 100 MG GELCAP PO SCH ×2 (09:58→20:20)
[2019-01-22] MEDS: FUROSEMIDE 40 MG/4 ML VIAL IVP SCH ×2 (09:59→16:47)
--- NOTE | 2019-01-22 11:33 | NUR ---
ASSISTED PT TO BEDSIDE COMMODE AND BACK TO BED. PT TOLERATED WELL. BED IN LOW POSITION. BED ALARM ON. CALL LIGHT AT BEDSIDE. WILL CONTINUE TO MONITOR.
--- NOTE | 2019-01-22 13:10 | NUR ---
PT WATCHING TV AT THIS TIME. BED IN LOW POSITION. BED ALARM ON. CALL LIGHT AT BEDSIDE. WILL CONTINUE TO MONITOR.
[2019-01-22] MEDS ORDERED: AZITHROMYCIN 250 MG TAB PO SCH (15:16)
[2019-01-22 16:00] VITALS: BP 108/56
[2019-01-22] MEDS: NACL 0.9% 1,000 ML IV SCH (17:04)
--- NOTE | 2019-01-22 17:39 | NUR ---
REPORT RECEIVED BY HR BUSINESS PARTNER NURSE FOR CONTINUITY OF CARE. RESPIRATIONS EVEN AND UNLABORED, IV INTACT AND PATENT, SAFETY MEASURES IN PLACE, BED IN LOW POSITION, BED ALARM ON, CALL LIGHT AT BEDSIDE, WILL CONTINUE TO MONITOR. EDUCATED ON THE IMPORTANCE OF COMING TO STAFF IF HAVING TROUBLE BREATHING. Addendum: 01/22/19 at 1815 by Radha Jeffries RN WRONG TIME OF ENTRY
--- NOTE | 2019-01-22 19:15 | NUR ---
GAVE REPORT TO HOSPITAL INSURANCE REPRESENTATIVE NURSE PRINCESS FOR CONTINUITY OF CARE. PT IN STABLE CONDITION.
--- NOTE | 2019-01-22 19:16 | NUR ---
RECEIVED REPORT FROM AM SHIFT NURSE. PATIENT ALERT AND ORIENTED X3. NO APPARENT DISTRESS NOTED. WITH 22G ON RIGHT UPPER ARM ON SALINE LOCK. ABLE TO AMBULATE TO BEDSIDE COMMODE. ON 2.5LPM VIA NC. NO SOB NOTED. WILL CONTINUE TO MONITOR.
[2019-01-22] MEDS: ATORVASTATIN 20 MG TAB PO SCH (20:20)
--- NOTE | 2019-01-22 21:10 | NUR ---
ASSISTED PATIENT TO BEDSIDE COMMODE. NO APPARENT DISTRESS NOTED. BED ON LOW POSITION. CALL LIGHT WITHIN REACH. WILL CONTINUE TO MONITOR.
--- NOTE | 2019-01-22 23:05 | NUR ---
ROUNDS DONE. PATIENT ASLEEP IN BED. NO APPARENT DISTRESS NOTED. VISIBLE CHEST RISE AND FALL NOTED. BED ON LOW POSITION. CALL LIGHT WITHIN REACH. WILL CONTINUE TO MONITOR.
[2019-01-23] VITALS: BP 129/69
[2019-01-23] MEDS: methylPREDNISolone SS 40 MG/ML VIAL IVP SCH ×2 (00:35→05:50)
--- NOTE | 2019-01-23 01:05 | NUR ---
ASSISTED PATIENT TO BEDSIDE COMMODE. NO DISTRESS NOTED. NO SOB. BED ON LOW POSITION. CALL LIGHT WITHIN REACH. WILL CONTINUE TO MONITOR.
--- NOTE | 2019-01-23 03:00 | NUR ---
PATIENT ASLEEP IN BED. NO APPARENT DISTRESS NOTED. VISIBLE CHEST RISE AND FALL NOTED. WILL CONTINUE TO MONITOR.
--- NOTE | 2019-01-23 05:00 | NUR ---
PATIENT ASSISTED TO COMMODE. NO APPARENT DISTRESS NOTED. BED ON LOW POSITION. CALL LIGHT WITHIN REACH. WILL CONTINUE TO MONITOR.
--- NOTE | 2019-01-23 06:47 | NUR ---
PATIENT ASSISTED TO COMMODE. NO APPARENT DISTRESS NOTED. WILL CONTINUE TO MONITOR.
[2019-01-23] MEDS: BUDESONIDE 0.5 MG/2 ML NEBU INH SCH (06:49)
[2019-01-23] MEDS: ALBUTEROL SULFATE/IPRATROPIU 3 ML SOL IH SCH (06:49)
[2019-01-23 07:15] LABS: BASOPHILS % (AUTO) 0.2 % (0.0-2.0); HEMATOCRIT 44.2 % (36-48); HEMOGLOBIN 14.1 g/dL (12.0-16.0); LYMPHOCYTES # (AUTO) 1.9 K/uL (2.5-16.5); LYMPHOCYTES % (AUTO) 10.7 % (20.5-51.1); MEAN CORPUSCULAR HEMOGLOBIN 28 pg (27-31); MEAN CORPUSCULAR HGB CONC 32 g/dL (33-37); MEAN CORPUSCULAR VOLUME 89.1 fL (80-94); MONOCYTES # (AUTO) 0.7 K/uL (0.8-1.0); MONOCYTES % (AUTO) 3.9 % (1.7-9.3); NEUTROPHILS # (AUTO) 15.2 K/uL (1.8-7.7); NEUTROPHILS % (AUTO) 85.2 % (42.2-75.2); PLATELET COUNT (AUTO) 279 K/uL (140-450); RED BLOOD CELL COUNT(AUTO) 4.96 MIL/uL (4.20-5.40); RED CELL DISTRIBUTION WIDTH 13.8 % (11.6-13.7); WHITE BLOOD COUNT (AUTO) 17.8 K/uL (4.8-10.8)
--- NOTE | 2019-01-23 07:25 | NUR ---
ENDORSED TO AM SHIFT NURSE IN STABLE CONDITION.
--- NOTE | 2019-01-23 07:27 | NUR ---
RECEIVED BEDSIDE REPORT FROM NIGHTSHIFT NURSE. PT AAOX4. SKIN WARM AND DRY TO TOUCH. IV ON R SHOULDER 22 G SALINE LOCK. CLEAN AND INTACT. RESPIRATIONS EVEN AND UNLABORED WITH NO SOB OR RESPIRATORY DISTRESS. NO COMPLAINTS OF PAIN OR DISCOMFORT. SAFETY MEASURES IN PLACE: HOB ELEVATED, BED IN LOWEST POSITION, CALL LIGHT WITHIN REACH AND TAUGHT PATIENT HOW TO USE. FREQUENT CHECKS MADE. WILL CONTINUE TO MONITOR.
[2019-01-23 07:32] LABS: ANION GAP 11.4 (8-16); CARBON DIOXIDE 32.3 mmol/L (21-32); POTASSIUM 4.7 mmol/L (3.5-5.1)
[2019-01-23 07:35] LABS: MAGNESIUM 2.3 mg/dL (1.8-2.4); PHOSPHORUS 3.8 mg/dL (2.5-4.9)
[2019-01-23 08:00] VITALS: BP 118/63
[2019-01-23] MEDS ORDERED: DOCU-299 PO (08:16)
[2019-01-23] MEDS ORDERED: LACT10CA PO (08:16)
[2019-01-23] MEDS ORDERED: ALBU0.0912 IH (08:16)
[2019-01-23] MEDS ORDERED: METH4TAB3 PO (08:16)
[2019-01-23] MEDS ORDERED: FURO-570 PO (08:16)
[2019-01-23] MEDS ORDERED: PUL.5N INH (08:16)
[2019-01-23] MEDS ORDERED: ATOR20TA40 PO (08:16)
[2019-01-23] MEDS ORDERED: CLIN300C2 PO (08:16)
--- NOTE | 2019-01-23 08:30 | NUR ---
INFORMED PATIENT THAT SHE WILL BE DISCHARGE FROM THE HOSPITAL TODAY, PATIENT WAS AWARE AND STATED "MY NIECE WILL BE PICK ME UP. I WILL CALL HER." PATIENT IS AWAKE AND RESTING ON BED AT THIS TIME. NO SIGNS OF DISTRESS NOTED. SAFETY MEASURES IN PLACE.
[2019-01-23] MEDS ORDERED: AZITHROMYCIN 250 MG TAB PO SCH (09:00)
[2019-01-23] MEDS: FUROSEMIDE 40 MG/4 ML VIAL IVP SCH (09:29)
[2019-01-23] MEDS: DOCUSATE SODIUM 100 MG GELCAP PO SCH (09:30)
[2019-01-23] MEDS: LACTOBACILLUS RHAMNOSUS GG 1 EACH CAP PO SCH (09:30)
--- NOTE | 2019-01-23 09:30 | NUR ---
ADMINISTERED MEDS PER MD ORDER, MEDS EDUCATION PROVIDED TO PATIENT AND PATIENT VERBALIZED UNDERSTANDING. PATIENT TOLERATED MEDS WELL. PATIENT IS AWAKE AND SITTING UP ON BED. DENIED PAIN, SOB AND DIZZINESS. AWAITING FOR NIECE TO ARRIVE FOR DISCHARGE. NO SIGNS OF DISTRESS NOTED. SAFETY MEASURES IN PLACE. BED IN LOW POSITION AND CALL LIGHT WITHIN REACH.
[2019-01-23] MEDS: ALBUTEROL SULFATE/IPRATROPIU 3 ML SOL IH PRN (11:07)
--- NOTE | 2019-01-23 11:22 | NUR ---
PATIENT FINISHED BREATHING TREATMENT WITH RT. AWAKE AND WATCHING TV ON BED AT THIS TIME. NO SIGNS OF DISTRESS NOTED. AWAITING FOR NIECE FOR DISCHARGE. SAFETY MEASURES IN PLACE.
--- NOTE | 2019-01-23 12:00 | NUR ---
JOELLE ARRIVE AT BEDSIDE. PATIENT WANTS TO EAT HER LUNCH BEFORE SHE DISCHARGES. NO SIGNS OF DISTRESS NOTED.
--- NOTE | 2019-01-23 12:27 | NUR ---
DISCHARGE INSTRUCTION PROVIDED TO PATIENT AND PATIENT'S MAHESH LAI AT BEDSIDE. EDUCATED PATIENT ON FOLLOW UP WITH MD, MEDICATIONS REGIMEN, SIDE EFFECTS, DISEASE MANAGEMENT, AND DIET. ANSWERED ALL PATIENT'S AND JOELLE'S QUESTIONS, ALL VERBALIZED UNDERSTANDING. PATIENT WAS AWARE THAT HER PRESCRIPTION WAS SEND TO HER PREFERRED PHARMACY. AND HOME HEALTH WILL CONTACT PATIENT. PATIENT AND JOELLE CHECKED ALL CABINETS AND TOOK ALL BELONGINGS HOME. REMOVED IV, CANNULA INTACT. REMOVED ALL ARM BANDS. PER PATIENT, SHE IS UP TO DATE WITH HER PNA AND FLU VACCINES. PATIENT CHANGED INTO HER OWN CLOTHES. PATIENT IS GOING TO BE DISCHARGE AT THIS TIME AND ACCOMPANIED WITH JOELLE. PATIENT IS IN STABLE CONDITION.
--- NOTE | 2019-01-23 14:57 | NUR ---
PCP Appointment: RACHELL contacted Dr. Malick Victoria's office. RACHELL scheduled appointment for patient at 2:00AM on 02/01/2019 @ [address] [id number]. Appointment slip was left in patient's chart to be given at discharge. No further needs identified.
== END 2019-01-23 12:27 | disposition home or self-care (01) | DRG 720 ==
LOC: MED 13:56 → MTU 17:12
PROVIDERS: ADMIT General Practice; ATTEND General Practice
DX: A41.9 Sepsis, unspecified organism (principal); J96.21 Acute and chronic respiratory failure with hypoxia; E44.0 Moderate protein-calorie malnutrition; J90 Pleural effusion, not elsewhere classified; J18.9 Pneumonia, unspecified organism; Z99.81 Dependence on supplemental oxygen; R65.10 Systemic inflammatory response syndrome (SIRS) of non-infectious origin without acute organ dysfunction; J44.1 Chronic obstructive pulmonary disease with (acute) exacerbation; Z68.42 Body mass index [BMI] 45.0-49.9, adult; E78.5 Hyperlipidemia, unspecified; F17.210 Nicotine dependence, cigarettes, uncomplicated; G47.33 Obstructive sleep apnea (adult) (pediatric); J96.22 Acute and chronic respiratory failure with hypercapnia; E66.9 Obesity, unspecified; J98.11 Atelectasis; M77.32 Calcaneal spur, left foot; R73.03 Prediabetes; E02 Subclinical iodine-deficiency hypothyroidism; Z71.6 Tobacco abuse counseling; Z88.5 Allergy status to narcotic agent; Z88.0 Allergy status to penicillin
CPT/HCPCS: 36415; 36600; 71045; 71250; 73610; 76604; 80048; 80053; 81003; 82150; 82803; 83036; 83690; 83735; 83880; 84100; 84439; 84443; 84484; 85025; 85379; 85610; 85730; 87040; 87070; 87081; 87086; 87205; 87804; 89220; 93005; 93970; 94640; 97110; 97116; 97161-GP; 97530; 99285; J0696; J1644; J1885; J1940; J2920; J7030; J7060; J7512; J7613; J7620; J7626; J7644; Q0092